=== PATIENT | male | born 1970 | race Caucasian/White ===

== ENCOUNTER 2022-08-25 18:44 | Emergency (ER) | payer MEDICAID ==
[~2022-08-25] VITALS: Ht 198.1 cm; Wt 127.3 kg
[2022-08-25 19:07] VITALS: BP 163/106
[2022-08-25] MEDS ORDERED: pilocarpine 2% ophthalmic drops 15ml RIGHTEYE ONE (19:50)
[2022-08-25] MEDS ORDERED: proparacaine 0.5% ophthalmic drops 15ml RIGHTEYE ONE ×3 (20:15)
[2022-08-25] MEDS ORDERED: ciprofloxacin 0.3% 2.5ml ophthalmic solution RIGHTEYE ONE (20:30)
[2022-08-25] MEDS ORDERED: CIPR2.5D21 RIGHTEYE (20:35)
== END 2022-08-25 21:01 | disposition home or self-care (01) ==
LOC: ER 18:44
DX: S05.01XA Injury of conjunctiva and corneal abrasion without foreign body, right eye, initial encounter (principal); X58.XXXA Exposure to other specified factors, initial encounter; Y93.89 Activity, other specified; Y92.89 Other specified places as the place of occurrence of the external cause; Y99.8 Other external cause status
CPT/HCPCS: 99283